=== PATIENT | male | born 1970 ===

== ENCOUNTER 2024-06-24 06:22 | Day surgery (SDC) | payer OTHER, SELFPAY | END 2024-06-24 13:27 | disposition home or self-care (01) | LOC: GI 06:22 | PROVIDERS: ATTENDING PHYSICIAN Internal Medicine Gastroenterology | DX: Z12.11 Encounter for screening for malignant neoplasm of colon (principal); K64.0 First degree hemorrhoids; D12.2 Benign neoplasm of ascending colon; D12.3 Benign neoplasm of transverse colon | CPT/HCPCS: 45380; 88305 ==